=== PATIENT | male | born 1980 | race Caucasian/White ===

== ENCOUNTER 2020-07-21 12:09 | Emergency (ER) | payer MEDICAID ==
[~2020-07-21] VITALS: Ht 170.2 cm; Wt 100.0 kg
[2020-07-21 12:17] VITALS: BP 149/95
[2020-07-21] MEDS ORDERED: CEPH500C5 PO (14:55)
[2020-07-21] MEDS ORDERED: SULF1TAB49 PO (14:55)
[2020-07-21] MEDS ORDERED: LACT1CAP60 PO (14:56)
== END 2020-07-21 15:15 | disposition home or self-care (01) ==
LOC: ER 12:10
DX: L02.415 Cutaneous abscess of right lower limb (principal); F17.200 Nicotine dependence, unspecified, uncomplicated; Z79.899 Other long term (current) drug therapy
CPT/HCPCS: 99283

== ENCOUNTER 2021-08-23 12:33 | Emergency (ER) | payer MEDICAID ==
[~2021-08-23] VITALS: Ht 170.2 cm; Wt 90.9 kg
[~2021-08-23 12:33] MED LIST: LACT1CAP60 PO
[2021-08-23 12:43] VITALS: BP 147/112
[2021-08-23] MEDS ORDERED: SULF1TAB49 PO (13:16)
== END 2021-08-23 13:25 | disposition home or self-care (01) ==
LOC: ER 12:33
DX: L02.412 Cutaneous abscess of left axilla (principal); M79.622 Pain in left upper arm; Z79.2 Long term (current) use of antibiotics; Z79.899 Other long term (current) drug therapy
CPT/HCPCS: 99283